=== PATIENT | male | born 1995 | race Caucasian/White ===

== ENCOUNTER 2018-07-13 18:29 | Emergency (ER) | payer MEDICAID ==
[~2018-07-13] VITALS: Ht 182.9 cm; Wt 53.7 kg
[~2018-07-13 18:29] MED LIST: ONDA8TAB9 PO
[2018-07-13 18:41] VITALS: BP 146/90
--- NOTE | 2018-07-13 20:18 | NUR ---
not in lobby
--- NOTE | 2018-07-13 20:40 | NUR ---
not in lobby
--- NOTE | 2018-07-13 21:01 | NUR ---
not in lobby
[2018-07-13] MEDS ORDERED: ONDA4TAB6 PO (21:08)
[2018-07-13] MEDS ORDERED: TAM75C PO (21:08)
== END 2018-07-13 21:13 | disposition home or self-care (01) ==
LOC: ER 18:29
DX: R09.89 Other specified symptoms and signs involving the circulatory and respiratory systems (principal); R11.2 Nausea with vomiting, unspecified; J02.9 Acute pharyngitis, unspecified; Z79.899 Other long term (current) drug therapy
CPT/HCPCS: 99283

== ENCOUNTER 2018-10-24 20:20 | Emergency (ER) | payer MEDICAID ==
[~2018-10-24] VITALS: Ht 182.9 cm; Wt 6.1 kg
[~2018-10-24 20:20] MED LIST changes: +ONDA4TAB6 PO
[2018-10-24 21:41] VITALS: BP 123/69
== END 2018-10-24 21:47 | disposition home or self-care (01) ==
LOC: ER 20:20
DX: B34.9 Viral infection, unspecified (principal); Z91.018 Allergy to other foods; Z79.899 Other long term (current) drug therapy
CPT/HCPCS: 99281

== ENCOUNTER 2023-08-16 21:50 | Emergency (ER) | payer MEDICAID ==
[~2023-08-16] VITALS: Ht 182.9 cm; Wt 68.2 kg
[2023-08-16 22:16] VITALS: BP 125/79; PULSE 105; RESP 17; TEMP 98.2; O2SAT 97
[2023-08-16] MEDS ORDERED: dexamethasone sod phosphate 10mg/ml inj IM STA (22:49)
[2023-08-16] MEDS ORDERED: CefTRIAXone 1000mg IM Kit (w/lidocaine diluent) IM ONE (22:50)
[2023-08-16] MEDS ORDERED: PRED20TA PO (22:58)
[2023-08-16] MEDS ORDERED: SKIN30CL4 TOP (22:58)
[2023-08-16] MEDS ORDERED: CEPH-585 PO (22:58)
== END 2023-08-17 01:14 | disposition home or self-care (01) ==
LOC: ER 21:51
DX: L23.7 Allergic contact dermatitis due to plants, except food (principal); Z91.018 Allergy to other foods; Z79.899 Other long term (current) drug therapy
CPT/HCPCS: 96372; 99284; J0696; J1100